=== PATIENT | female | born 1990 | race American Indian/Alaskan Native ===

== ENCOUNTER 2017-06-04 20:58 | Inpatient (IN) | payer MEDICAID ==
[2017-06-04] MEDS ORDERED: PITOCin/NS 20 UNIT/1000ML DRIP 20,000 MILLIUNITS/1,000 ML BAG IV ONE (21:33)
[2017-06-04] MEDS ORDERED: XYLOCAINE 2% INFILTRATI ONE (21:48)
[2017-06-04] MEDS ORDERED: LANSINOH TP PRN (21:49)
[2017-06-04] MEDS ORDERED: BENADRYL PO PRN (21:49)
[2017-06-04] MEDS ORDERED: NORCO 5/325 PO PRN (21:49)
[2017-06-04] MEDS ORDERED: TYLENOL PO PRN (21:49)
[2017-06-04] MEDS ORDERED: MILK OF MAGNESIA PO PRN (21:49)
[2017-06-04] MEDS ORDERED: DULCOLAX PR PRN (21:49)
[2017-06-04] MEDS ORDERED: DERMOPLAST TP PRN (21:49)
[2017-06-04] MEDS ORDERED: PHENERGAN PO PRN (21:49)
[2017-06-04] MEDS ORDERED: ZOFRAN IV PRN (21:49)
[2017-06-04] MEDS ORDERED: TUCKS PAD TP PRN (21:49)
[2017-06-04] MEDS ORDERED: ATIVAN IV ONE ×2 (21:54)
--- NOTE | 2017-06-04 21:58 | History and Physical Report ---
History of Present Illness Date of examination: 06/04/17 Date of admission: 06/04/17 21:16 Chief complaint: Labor @ term, SROM clear History of present illness: EDC Confirmation: 06/13/2017 Past History : 2 Term Births: 1 Premature Births: 0 Living Children: 1 Para: 1 Mult. Births: 0 Prev : 0 Prev. attempt? 0 Aborta: 0 Elect. Ab: 0 Spont. Ab: 0 # 1 Delivery date: 06/2015 Weeks Gestation: 40 labor: no Delivery type: Anesthesia type: none Delivery location: [facility] Sex: Male weight: 9#13 Past Medical History: seizures - unsure of type last seizure 2 years ago during - keppra, needs new neuro - ( referral given at [facility]) Past Surgical History: negative Past Medical History Anesthesia Complications: negative Anemia: negative Autoimmune Disorder: negative Bleeding Disorder: negative Blood Transfusions: negative Breast Disease: negative Diabetes: negative Heart Disease: negative Hypertension: negative Hepatitis/Liver Disease: negative Kidney Disease/UTI: negative Neurologic/Epilepsy/Migraines: positive Phlebitis/Varicosities: negative Psychiatric: negative Pulmonary Disease/Asthma: negative Thyroid Disease: negative Hospitalizations: negative Surgery (Non-rate and cost analyst): negative Abnormal PAP: negative KHANH Exposure: negative Infertility: negative Uterine Anomaly: negative Uterine Surgery (not C/S): negative Other Gynecologic Problems: negative Family Hx: no known family medical hx no CA 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 Infection History Hx of STD: none HIV Risk Eval: no Hepatitis B Risk Eval: low risk Varicella/Chicken Pox Status: Immunized Genetic History Congenital Heart Defect: Mom: no Dad: no Trini Disease: Mom: no Dad: no Thalassemia Mom: no Dad: no Neural Tube Defect Mom: no Dad: no Down's Syndrome Mom: no Dad: no Sung-Sachs Mom: no Dad: no Sickle Cell Disease/Trait Mom: no Dad: no Hemophilia Mom: no Dad: no Muscular Dystrophy Mom: no Dad: no Cystic Fibrosis Mom: no Dad: no [place] Chorea Mom: no Dad: no Mental Retardation Mom: no Dad: no Fragile X Mom: no Dad: no Other Genetic/Chromosomal Disorder Mom: no Dad: no Child w/other defect Mom: no Dad: no Enviromental Exposures Xray Exposure: no Medication, drug, or alcohol use since LMP: no Chemical/Other Exposure: no Exposure to Cat Liter: no Hx of Parvovirus (Fifth Disease): no 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 Current Allergies (reviewed today): No known allergies Past History Past Medical History: seizure Past Surgical History: other (see HPI) - Obstetrical History Expected Date of Delivery: 06/13/17 Actual Gestation: 38 Week(s) 5 Day(s) : 2 Para: 1 Hx # Term Pregnancies: 1 Number of Pregnancies: 0 Spontaneous Abortions: 0 Induced : 0 Number of Living Children: 1 Medications and Allergies Active Meds: Active Medications Acetaminophen (Tylenol) 650 mg PO Q4H PRN PRN Reason: Pain MILD(1-3)/Fever >100.5/AGUIRRE Acetaminophen/Hydrocodone Bitart ([place] 5/325) 2 each PO Q6H PRN PRN Reason: Pain, Moderate (4-6) Benzocaine/Menthol (Dermoplast) 1 spray TP PRN PRN PRN Reason: Pain Bisacodyl (Dulcolax) 10 mg DE BID PRN PRN Reason: Constipation Diphenhydramine HCl (Benadryl) 25 mg PO Q6H PRN PRN Reason: Itching Diphtheria/Tetanus/Acell Pertussis (Boostrix) 0.5 ml IM .ONCE ONE Stop: 06/05/17 21:50 Docusate Sodium (Colace) 100 mg PO BID [facility] Oxytocin/Sodium Chloride (Pitocin/Ns 20 Unit/1000ml Drip) 20 units in 1,000 mls @ 250 mls/hr IV DIRECT TRUDY Ibuprofen (Motrin) 600 mg PO Q6H TRUDY Levetiracetam (Keppra) 1,000 mg PO QPM TRUDY Levetiracetam (Keppra) 750 mg PO QAM TRUDY Magnesium Hydroxide (Milk Of Magnesia) 30 ml PO HS PRN PRN Reason: Constipation Multi-Ingredient Ointment (Lansinoh) 1 applic TP PRN PRN PRN Reason: Sore Nipples Multivitamins/Iron/Calcium ( Vitamin) 1 each PO QDAY TRUDY Ondansetron HCl (Zofran) 4 mg IV Q8H PRN PRN Reason: Nausea And Vomiting Promethazine HCl (Phenergan) 25 mg PO Q6H PRN PRN Reason: Nausea And Vomiting Sodium Chloride (Sodium Chloride Flush Syringe 10 Ml) 10 ml IV PRN NR Witch Shante/Glycerin (Tucks Pad) 1 each TP PRN PRN PRN Reason: Hemorrhoid/cleansing/soothing Review of Systems All systems: negative - Vital Signs Vital signs: Vital Signs Pulse BP 98 H 116/74 06/04/17 21:51 06/04/17 21:51 Temp Pulse Resp BP Pulse Ox 98 H 116/74 06/04/17 21:51 06/04/17 21:51 - Physical Exam Breasts: Positive: normal Cardiovascular: Regular rate Lungs: Positive: Normal air movement Abdomen: Positive: normal appearance, soft Genitourinary (Female): Positive: normal external genitalia, normal perenium Vagina: Positive: normal moisture - Obstetrical Cervical Dilatation: 10 Cervical Effacement Percentage: 100 station: 0 Uterine Contraction Pattern: Regular Results Result Diagrams: 06/04/17 21:20 All other labs normal. Assessment and Plan Patient arrived in active labor with SROM, GBS NEG. she quickly progressed to completed and delivered. admission orders entered. - Patient Problems (1) Seizure disorder Current Visit: Yes Status: Acute Plan to address problem: neuro recommendations reviewed and ordered Copy of recommendations scanned into chart (2) 38 weeks gestation of Current Visit: Yes Status: Acute (3) Active labor Current Visit: Yes Status: Acute
[2017-06-04 21:59] LABS: Hematocrit 38.3 % (30.3-42.9); Hemoglobin 12.1 gm/dl (10.1-14.3); Mean Corpuscular HGB Conc 32 % (30-34); Mean Corpuscular Volume 75 fl (79-97); Platelet Count 249 K/mm3 (140-440); Red Blood Count 5.13 M/mm3 (3.65-5.03); Red Cell Distribution Width 14.8 % (13.2-15.2); White Blood Count 7.4 K/mm3 (4.5-11.0)
[2017-06-04] MEDS ORDERED: PITOCin/NS 20 UNIT/1000ML DRIP 20 UNITS/1,000 ML BAG IV SCH (22:00)
[2017-06-04] MEDS ORDERED: SODIUM CHLORIDE FLUSH SYRINGE 10 ML IV NR (22:00)
[2017-06-04 22:01] LABS: Mean Corpuscular Hemoglobin 24 pg (28-32)
--- NOTE | 2017-06-04 22:10 | Procedure Note ---
OB Delivery Note - Delivery Date of Delivery: 06/04/17 ( female) Surgeon: JUDITH REED Estimated blood loss: 200cc - Vaginal Delivery presentation: vertex Delivery position: OA Intrapartum events: precipitous labor- <3hr Delivery induction: none Delivery monitor: external FHT, external uterine Route of delivery: Delivery placenta: spontaneous Delivery cord: 3 umbilical vessels Episiotomy: none Delivery laceration: 1st degree Delivery repair: vicryl Anesthesia: local Delivery comments: by Dr. Reed over intact perineum, Placenta del intact and completed. Cord blood collected. 1st degree lac repaired with local in the usual fashion. - Infant A at 1 minute: 8 at 5 minutes: 9 Infant Gender: Female (8#10)
[2017-06-04] MEDS ORDERED: LACTATED RINGERS 1,000 ML ONE (23:27)
[2017-06-05] MEDS: MOTRIN PO SCH ×4 (04:30→18:23)
[2017-06-05] MEDS ORDERED: BOOSTRIX IM ONE (06:00)
--- NOTE | 2017-06-05 06:42 | Progress Note ---
Assessment and Plan - Patient Problems (1) (normal spontaneous vaginal delivery) Onset Date: ~06/04/17 Current Visit: Yes Status: Acute Plan to address problem: Pt w/o compalint VSS FF below umb Lochia small perineum slight swelling intact. Post delivery H&H pending. Pt w/o s/sx of anemia. Doing well s/p vag del P: continue pathway Advance as tolerated. Subjective - Subjective Date of service: 06/05/17 (pt resting w/o complaint) Principal diagnosis: 06-04-17 Patient reports: appetite normal, voiding normally, pain well controlled, ambulating normally [place]: doing well Objective - Vital Signs Latest vital signs: Vital Signs Temp Pulse Resp BP BP 06/05/17 00:00 98.6 F 60 16 101/69 06/04/17 23:24 89 102/66 06/04/17 23:08 79 103/62 06/04/17 22:54 71 109/70 06/04/17 22:39 69 109/58 06/04/17 22:23 83 121/66 06/04/17 22:09 90 126/64 06/04/17 21:51 98 H 116/74 Intake and Output 06/04/17 06/04/17 06/05/17 14:59 22:59 06:59 Intake Total 500 Output Total 800 Balance -300 Intake: Oral 200 Intake, Free Water 300 Output: Urine 800 Void 800 Other: Total, Intake Amount 200 Total, Output Amount 800 # Voids Void 1 Weight 142 lb Estimated Blood Loss 200 Patient Weight 06/05/17 06:59 Weight 142 lb - Exam Breasts: Present: normal Cardiovascular: Present: Regular rate Lungs: Present: Normal air movement Abdomen: Present: normal appearance, soft, normal bowel sounds Vulva: both: normal Uterus: Present: normal Extremities: Present: normal Deep Tendon Reflex Grade: Normal +2 Incision: Present: normal - Labs Labs: Abnormal lab results 06/04/17 Range/Units 21:20 RBC 5.13 H (3.65-5.03) M/mm3 MCV 75 L (79-97) fl MCH 24 L (28-32) pg
[2017-06-05] MEDS: KEPPRA PO SCH (07:52)
[2017-06-05] MEDS: FOLVITE PO SCH (10:33)
[2017-06-05] MEDS: COLACE PO SCH ×2 (10:33→22:33)
[2017-06-05] MEDS: PRENATAL VITAMIN PO SCH (10:33)
[2017-06-05 10:42] LABS: Hematocrit 36.6 % (30.3-42.9); Hemoglobin 11.4 gm/dl (10.1-14.3)
[2017-06-05] MEDS ORDERED: Fluarix Quad 2017-2018(36 MOS+ IM ONE (12:00)
[2017-06-05] MEDS ORDERED: KEPPRA PO SCH (22:00)
[2017-06-06] MEDS: MOTRIN PO SCH ×2 (01:08→05:43)
--- NOTE | 2017-06-06 07:48 | Discharge Summary ---
Providers - Providers Date of Admission: 06/04/17 21:16 Date of discharge: 06/06/17 (pt desires d/c) Attending physician: JUDITH DAVID 06/04/17 21:51 Consult to Snath Handle Assembler [CONS] Routine Reason For Exam: assistance with , SNS Primary care physician: JUDITH DAVID Hospitalization Reason for admission: active labor Delivery: Episiotomy: none Laceration: none Incision: normal Other procedures: none complications: none Discharge diagnosis: IUP at term delivered baby: female Hospital course: uncomplicated vaginal delivery Pt w/o voiced c/o VSS FF below umb Lochia small perineum intact. H&H drop r/t blood loss from delivery No s/sx of anemia Doing well s/p vag delivery P: d/ c today with instructions RTO 4 weeks Pt is to f/u with her Neurologist in 3 months. Condition at discharge: Good Disposition: DC-01 TO HOME OR SELFCARE - Discharge Diagnoses (1) (normal spontaneous vaginal delivery) Status: Acute Comment: RTO 4 weeks PP care Plan - Discharge Medications Prescriptions: Ibuprofen [Motrin 800 MG tab] 800 mg PO TID PRN #30 tablet PRN Reason: Pain - Provider Discharge Summary Activity: routine, no sex for 6 weeks, no heavy lifting 4 weeks, no strenuous exercise Diet: routine Instructions: routine Additional instructions: [] Smoking cessation referral if applicable(refer to patient education folder for contact #) [] Refer to [facility]'s [facility] Booklet Call your doctor immediately for: * Fever > 100.5 * Heavy vaginal bleeding ( >1 pad per hour) * Severe persistent headache * Shortness of breath * Reddened, hot, painful area to leg or breast * Drainage or odor from incision. * Keep incision clean and dry at all times and follow doctor's instructions regarding bathing/showering - Follow up plan Follow up: JUDITH DAVID MD [Primary Care Provider] - 07/08/17 (Congratulations! Please call [phone] to schedule your visit in 4 weeks. Take medication as prescribed. Make appointment with neurologist as per their recommendation. Call with any concerns.)
[2017-06-06 10:03] VITALS: BP 100/65
[2017-06-06] MEDS: KEPPRA PO SCH (10:22)
[2017-06-06] MEDS: COLACE PO SCH (10:23)
[2017-06-06] MEDS: FOLVITE PO SCH (10:23)
[2017-06-06] MEDS: PRENATAL VITAMIN PO SCH (10:24)
== END 2017-06-06 13:00 | disposition home or self-care (01) | DRG 775 ==
LOC: TRG 20:58 → LD 21:16 → OB 23:52
PROVIDERS: ADMIT Obstetrics & Gynecology; ATTEND Obstetrics & Gynecology
PROC: 10E0XZZ Delivery of Products of Conception, External Approach (ICD-10-PCS; principal; 2017-06-04)
PROC: 0HQ9XZZ Repair Perineum Skin, External Approach (ICD-10-PCS; 2017-06-04)
PROC: 3E0234Z Introduction of Serum, Toxoid and Vaccine into Muscle, Percutaneous Approach (ICD-10-PCS; 2017-06-05)
DX: O62.3 Precipitate labor (principal); O99.354 Diseases of the nervous system complicating childbirth; O70.0 First degree perineal laceration during delivery; Z3A.38 38 weeks gestation of pregnancy; Z37.0 Single live birth; Z23 Encounter for immunization; G40.909 Epilepsy, unspecified, not intractable, without status epilepticus
CPT/HCPCS: 36415; 85014; 85018; 85027; 86592; 86850; 86900; 86901; 90686; 99211; A6250; G0463; J2590; J7120